=== PATIENT | male | born 1960 | race Two or more races ===

== ENCOUNTER → 2020-12-04 | Outpatient (CLI) | payer BC ==
--- NOTE | 2020-12-04 09:47 | KCIC ---
MR LUMBAR SPINE WO [id number] History: Reason: LUMBAR BACK PAIN / Spl. Instructions: / History: Chronic LBP, LLE radiculopathy. Technique: Multiplanar, multi sequential MR imaging was performed of the lumbar spine. Comparison: None Findings: Transitional lumbosacral anatomy with lumbarization of S1. L5-S1 disc space is identified on axial T2 series 5 image 17. Grade 1 anterolisthesis L4 on L5. Slight anterolisthesis L5 on S1. Normal vertebr al body height. No acute fracture. L1 and S1 vertebral body hemangiomas. Conus terminates at the normal location. No evidence of nerve root clumping. L1-L2: Minimal disc bulge. No canal or neuroforaminal narrowing. L2-L3: Minimal disc bulge. Mild facet arthropathy. No canal or neuroforaminal narrowing. L3-L4: Broad-based disc bulge. Moderate facet arthropathy. No canal narrowing. Mild subarticular rec ess narrowing. Mild neuroforaminal narrowing. L4-L5: Anterolisthesis. Disc uncovering. Slight disc extrusion superiorly. Advanced facet arthropath y. Mild canal narrowing. Moderate subarticular recess narrowing. Moderate left and mild right neurofo raminal narrowing. L5-S1: Small disc bulge. Advanced facet arthropathy. No canal narrowing. Minimal neuroforaminal narr owing. Impression: 1. Transitional lumbosacral anatomy with lumbarization of S1. 2. Multilevel lumbar spondylosis most prominent L4-5. 3. Grade 1 anterolisthesis L4 on L5 due to advanced facet arthropathy contributing to mild to modera te canal and subarticular recess narrowing. 4. Neuroforaminal narrowing most prominent left L4-5. Electronically signed by: Robert Alicia DO (12/04/2020 9:44 AM) [id number]
== END ==
LOC: KCIC MRI 08:14
PROVIDERS: ATTEND Family Medicine
DX: M47.817 Spondylosis without myelopathy or radiculopathy, lumbosacral region (principal); M51.27 Other intervertebral disc displacement, lumbosacral region; M48.07 Spinal stenosis, lumbosacral region; M43.17 Spondylolisthesis, lumbosacral region; D18.09 Hemangioma of other sites
CPT/HCPCS: 72148

== ENCOUNTER → 2021-04-26 | Outpatient (CLI) | payer BC ==
[~2021-04-26] MED LIST: GABA600T7 PO; HYDR-2761 PO; IBUP-1060 PO; OMEP20TA8 PO
[2021-04-26 14:41] LABS: BASO # 0.1 x10^3/uL (0.0-0.2); BASO % 1 % (0-3); EOS # 0.3 x10^3/uL (0.0-0.7); EOS % 3 % (0-3); HEMATOCRIT 41.5 % (39.0-53.0); HEMOGLOBIN 13.4 g/dL (13.0-17.5); LYMPH # 2.7 x10^3/uL (1.0-4.8); LYMPH % 29 % (24-48); MEAN CORPUSCULAR HEMOGLOBIN 28 pg (25-35); MEAN CORPUSCULAR HGB CONC 32 g/dL (31-37); MEAN CORPUSCULAR VOLUME 85 fL (79-100); MONO # 0.6 x10^3/uL (0.0-1.1); MONO % 6 % (0-9); NEUT # 5.8 x10^3/uL (1.8-7.7); NEUT % 62 % (31-73); PLATELET COUNT 217 x10^3/uL (140-400); RED BLOOD COUNT 4.89 x10^6/uL (4.30-5.70); RED CELL DISTRIBUTION WIDTH 16.7 % (11.5-14.5); WHITE BLOOD COUNT 9.4 x10^3/uL (4.0-11.0)
[2021-04-26 14:48] LABS: PROTHROMBIN TIME PATIENT 12.4 SEC (11.7-14.0)
[2021-04-26 15:09] LABS: ALBUMIN 3.7 g/dL (3.4-5.0); ALBUMIN/GLOBULIN RATIO 0.8 (1.0-1.7); CALCIUM 8.8 mg/dL (8.5-10.1); CREATININE 0.6 mg/dL (0.7-1.3); GFR 137.9; POTASSIUM 4.1 mmol/L (3.5-5.1); TOTAL BILIRUBIN 0.1 mg/dL (0.2-1.0); TOTAL PROTEIN 8.1 g/dL (6.4-8.2)
== END ==
LOC: SURGPAT 13:22
PROVIDERS: ATTEND Neurological Surgery
DX: Z01.818 Encounter for other preprocedural examination (principal); M43.16 Spondylolisthesis, lumbar region; M54.16 Radiculopathy, lumbar region
CPT/HCPCS: 36415; 80053; 85025; 85610; 85730; 87641